=== PATIENT | female | born 1955 | race Caucasian/White ===

== ENCOUNTER 2020-05-19 20:06 | Emergency (ER) | payer OTHER ==
[~2020-05-19] VITALS: Ht 172.7 cm; Wt 124.7 kg
[2020-05-19 23:10] VITALS: BP 137/86
== END 2020-05-19 23:52 | disposition home or self-care (01) ==
LOC: ER 20:06
DX: S46.912A Strain of unspecified muscle, fascia and tendon at shoulder and upper arm level, left arm, initial encounter (principal); M62.838 Other muscle spasm; I10 Essential (primary) hypertension; E11.9 Type 2 diabetes mellitus without complications; V89.2XXA Person injured in unspecified motor-vehicle accident, traffic, initial encounter; Y93.89 Activity, other specified; Y92.410 Unspecified street and highway as the place of occurrence of the external cause; Y99.8 Other external cause status
CPT/HCPCS: 70450; 72125; 93005